=== PATIENT | male | born 1960 | race African-American/Black ===

== ENCOUNTER 2016-06-02 22:46 | Emergency (ER) | payer MEDICARE, MEDICAID ==
[~2016-06-02] VITALS: Ht 177.8 cm; Wt 61.4 kg
[2016-06-02 22:46] VITALS: BP 134/84; PULSE 93; RESP 20; O2SAT 98
--- NOTE | 2016-06-02 23:07 | ED.REPORT ---
HPI-Overdose/Alcohol Toxicity Date of Service Jun 02, 2016 ED Provider: MD Addison This is a 55 year old male with a history of HIV and schizophrenia presenting to the emergency department via EMS seeking alcohol detox. Pt reports every day EtOH intake, pt called emergency services today. He also took "two" muscle relaxers today that were prescribed at the time of prior fractures. History is limited, he states, "I get thoughts from the television...I was speaking vision. " Denies illicit drug abuse and suicidal ideation. Pt is compliant with HIV medications at this time. Nursing Notes Stated Complaint: ALCOHOL DETOX Chief Complaint: Substance Abuse Nursing Notes Reviewed: Yes (Me) Allergies: Coded Allergies: Penicillins (Verified Allergy, Mild, 06/02/16) Scheduled Citalopram (Citalopram) 20 Mg Tablet 20 MG PO DAILY Scheduled PRN Naproxen (Naproxen) 500 Mg Tab 500 MG PO BID PRN PRN For Pain General Time Seen by Provider: 23:08 Chief Complaint Intoxicated, alcohol Hx Obtained From: Patient Arrived By: Ambulance Severity: Current: No pain currently Pertinent Negative: Pt denies other symptoms Recent Healthcare: No recent doctor visit, No recent hospitalization Similar Sx Previous: No Risk-Overdose/Alcohol Tox )( Suicide Risk Stratification RF Statements: No risk factors Past Medical History Past Medical History Notes: Irritation list per [facility] notes: Triumeq 600-50-300 daily Citalopram 20 mg daily Lurasidone 40 mg daily ([facility] notes patient was on transition from olanzapine to lurasidone in Feb and is supposed to be on this dose now) Records from [facility] suggest reasonable compliance and monthly visits (note: records indicate last visit 04/14/16, was to be seen 04/2016 but no notes from [facility] sent, unclear if he missed that appointment) Naproxen 1 tablet twice a day Past Medical History Records obtained from [facility]: Stage III HIV well-controlled on ART (moisés 106, HIV diagnosed in December 1995, %CD4 count 33, Abs Count 304, CD$/CD8 320, HIV RNA undetectable on labs 03/04/16 at [facility]), on TRiumeq 600-50-300 daily Schizophrenia Arthritis Hyperlipidemia Past Surgical History Unclear Smoking History Current Every Day Smoker Social History Homeless Occasional tobacco and marijuana use "Occasional EtOH" per [facility] No prior or current IV drug use This a history of crack cocaine use Alcohol Use: >5 per day Drug Use: THC Ambulatory Status Independent Review of Systems Review of Systems Note: + EtOH consumption Unable to Obtain ROS Intoxicated (limited) Constitutional: Denies: Chills, Fever Cardiovascular: Denies: Chest pain GI: Denies: Abdominal pain, Nausea, Vomiting Physical Exam Initial Vital Signs Vital Signs (First) Date Time Temp Pulse Resp B/P Pulse Ox O2 Delivery O2 Flow Rate FiO2 06/02/16 22:46 36.8 93 20 134/84 98 Room Air Initial VS: Reviewed, Vital signs normal Head / Eyes: Atraumatic, Normocephalic, PERRL ENT: Mucous membranes moist, Conjunctiva normal, No scleral icterus Neck: Supple, Non-tender, Full range of motion Extremities: Vascular intact, Neuro intact, No swelling, No tenderness Skin: Warm, Dry, No cyanosis General/Constitutional: Awake Appearance / Presentation: Positive: Intoxicated Heavy intoxicated, difficult to understand, makes random statements Respiratory / Chest: Atraumatic, Breath sounds NL, Breath sounds = bilat, No respiratory distress, No rales, No rhonchi, No wheezing Cardiovascular: Heart rate NL, Regular rhythm, Heart sounds NL, Cap refill not delayed, Peripheral circulation NL Abdomen: Atraumatic, Soft, Non-tender, No guarding, No rebound Neurologic: No motor deficits, No sensory deficits, CN II - XII intact Psychiatric: Not suicidal, Not homicidal Interpretation & Diagnostics Lab Results Interpretation Result Diagram: 06/02/16 2331 06/02/16 2331 Test 06/02/16 23:30 06/02/16 23:31 06/02/16 23:40 Hold [place] Top Tube Received (Received) White Blood Count 4.5th/mm3 (3.8-10.1) Red Blood Count 4.16mil/mm3 (4.40-5.80) Hemoglobin 11.9g/dL (13.8-17.2) Hematocrit 35.9% (41.0-50.0) Mean Corpuscular Volume 86.3fL (81-100) Mean Corpuscular Hemoglobin 28.6pg (27.0-35.0) Mean Corpuscular Hemoglobin Concent 33.1% (32.0-37.0) Red Cell Distribution Width 14.3% (12.3-15.4) Platelet Count 165bil/L (150-400) Neutrophils (%) (Auto) 60.8% (40-74) Lymphocytes (%) (Auto) 20.5% (14-46) Monocytes (%) (Auto) 14.5% (4-12) Eosinophils (%) (Auto) 3.6% (0-5) Basophils (%) (Auto) 0.2% (0-3) Sodium Level 136mEq/L (134-144) Potassium Level 3.5mEq/L (3.5-5.2) Chloride Level 100mEq/L (97-108) Carbon Dioxide Level 20mmol/L (18-29) Blood Urea Nitrogen 12mg/dL (6-24) Creatinine 1.08mg/dL (0.76-1.27) Estimat Glomerular Filtration Rate 76mL/min (>59) Glucose Level 90mg/dL (60-99) Calcium Level 8.8mg/dL (8.5-10.1) Magnesium Level 2.3mg/dL (1.6-2.6) Total Bilirubin 0.3mg/dL (0.0-1.2) Aspartate Amino Transf (AST/SGOT) 84U/L (0-50) Alanine Aminotransferase (ALT/SGPT) 36U/L (0-44) Alkaline Phosphatase 71U/L (25-150) Total Protein 7.9g/dL (6.4-8.4) Albumin 3.7g/dL (3.4-5.0) Thyroid Stimulating Hormone (TSH) 0.411uIU/mL (0.450-4.500) Salicylates Level < 3.0ug/mL (30-250) Acetaminophen Level < 15.0ug/mL Rx (10-25) Alcohols 181mg/dL (0-10) Urine Color Straw (YELLOW) Urine Appearance Clear (CLEAR,HAZY) Urine pH 6.0 (5.0-8.0) Urine Specific Steger 1.002 (1.003-1.035) Urine Protein Negativemg/dL (NEG,TRACE) Urine Glucose (UA) Negativemg/dL (NEGATIVE) Urine Ketones Negativemg/dL (NEGATIVE) Urine Occult Blood Negative (NEGATIVE) Urine Nitrite Negative (NEGATIVE) Urine Bilirubin Negative (NEGATIVE) Urine Urobilinogen Normalmg/dL (NORMAL) Urine Leukocyte Esterase Negative (NEGATIVE) Urine RBC 0-2/hpf (0-2) Urine WBC 0-5/hpf (0-5) Urine Epithelial Cells Occasional/hpf (NONE-MOD) Urine Crystals None seen (NONE SEEN) Urine Bacteria None/hpf (NONE-FEW) Urine Hyaline Casts None/lpf (NONE) Urine Granular Casts None seen (NONE SEEN) Urine Waxy Casts None seen (NONE SEEN) Urine Red Blood Cell Casts None seen (NONE SEEN) Urine White Blood Cell Casts None seen (NONE SEEN) Urine Mucus None seen (None Seen) Urine Trichomonas None seen (NONE SEEN) Urine Yeast None (NONE SEEN) Urine Culture Reflexed Not indicated Lab Results Interpretation: CBC normal CMP normal EtOH elevated U tox positive for marijuana Tylenol negative Salicylates negative Re-Eval/Medical Decision Med Decision/Clinical Course This is a 55-year-old homeless male presents needing to EtOH. He also told the nurses that he took muscle relaxants as well. When interviewed him, he smells of EtOH, his speech is highly slurred to the point that I can only understand component to what he is saying. Some of what she says is concerning for component of psychosis as well as he made statements to the affected with salad like hearing voices and getting thoughts from the television, but the bottom line is I really could not understand enough due to some slurring of the speech and clinical intoxication. I could not get him to describe suicidality, and he told me he only took 2 tabs of the muscle relaxant , but again the whole interview was limited in reliability. Patient is intoxicated clinically. He has adequate respirations with no signs of respiratory depression or airway compromise. Smiling and attempting to make jokes, several which I cannot understand again due to the slurred speech. He has no visible signs of trauma, no focal deficits. I was able to get out from these been seen at [facility]-this he has no records here, and so records were requested from [facility]. Labs demonstrate a component of EtOH. Urine tox is negative except for THC, and blood work is normal otherwise except for marginally low TSH. The records from [facility] indicate a history of schizophrenia and the patient is supposed to be on Latuda 40mg. I cannot tell if the patient may have missed his April appointment. At this point there is signs of clinical intoxication such that the plan is outpatient to metabolize medications to include the alcohol and the possible muscle relaxants to then allow further reevaluation. The patient does have a history of HIV, but records from [facility] indicate the patient has been compliant with this regimen, he has had recent CD4 counts and undetectable HIV viral loads indicating he has had adequate therapy. Kritz from [facility] also suggest the patient does not have a sustained history of alcoholism. His labs in the ED are normal without evidence of acute medical abnormality. The patient will be turned over at change of shift pending sobriety and re-eval. Source of Hx: Old records Differential Diagnosis: Positive: Intoxication, alcohol, Schizophrenia Counseled Regarding: Diagnosis, Lab results, Need for follow-up, When/why to return to ED Discharge & Departure Impression: Primary Impression: Alcohol intoxication Complication of substance-induced condition: uncomplicated Qualified Code: F10.120 - Alcohol abuse with intoxication, uncomplicated Additional Impressions: Schizophrenia Schizophrenia type: unspecified Qualified Code: F20.9 - Schizophrenia, unspecified HIV (human immunodeficiency virus infection) Overdose Encounter type: initial encounter Injury intent: undetermined intent Qualified Code: T50.904A - Poisoning by unspecified drugs, medicaments and biological substances, undetermined, initial encounter Homeless Care Transferred to: Dr. Zamarripa at change of shift Care Transferred at: 03:00 Scribe Attestation Portions of this note were transcribed by Lit Chappell. I, Dr. Jaime personally performed the history, physical exam and medical decision-making; I reviewed and confirmed the accuracy of the information in the transcribed note. Signed by: elif Ellis. 06/02/2016, 03:00. Alban Jaime MD Jun 02, 2016 23:07 LIT CHAPPELL Jun 02, 2016 23:10
[2016-06-02] MEDS ORDERED: CITA20TA11 PO (23:35)
[2016-06-02] MEDS ORDERED: NPR500T PO (23:35)
[2016-06-02 23:39] VITALS: RESP 18; O2SAT 96
[2016-06-02 23:42] LABS: BASOPHILS % (AUTO) 0.2 % (0-3); EOSINOPHILS % (AUTO) 3.6 % (0-5); MONOCYTES % (AUTO) 14.5 % (4-12); Mean Corpuscular Hemoglobin 28.6 pg (27.0-35.0); Mean Corpuscular Volume 86.3 fL (81-100); NEUTROPHILS % (AUTO) 60.8 % (40-74); Platelet Count 165 bil/L (150-400)
[2016-06-03 00:10] LABS: APPEARANCE,URINE CLEAR (CLEAR,HAZY); COLOR,URINE STRAW (YELLOW); OCCULT BLOOD,URINE NEGATIVE (NEGATIVE); UROBILINOGEN,URINE NORMAL (NORMAL)
[2016-06-03 00:25] LABS: Magnesium 2.3 mg/dL (1.6-2.6)
[2016-06-03 03:27] VITALS: BP 140/86; PULSE 74; RESP 18; O2SAT 96
[2016-06-03 06:19] VITALS: BP 138/82; PULSE 78; RESP 20; O2SAT 97
[2016-06-03] MEDS ORDERED: OLAN5TAB PO (12:09)
[2016-06-03] MEDS ORDERED: LURA40TA3 PO (12:09)
[2016-06-03] MEDS ORDERED: ABAC1TAB14 PO (12:09)
[2016-06-03 14:51] VITALS: BP 157/97; PULSE 97; RESP 18; O2SAT 97
== END 2016-06-03 14:55 | disposition home or self-care (01) ==
LOC: SED 22:46 → EDBD 22:46 → SED 06-03 14:55
DX: F10.129 Alcohol abuse with intoxication, unspecified (principal); F20.9 Schizophrenia, unspecified; T48.1X4A Poisoning by skeletal muscle relaxants [neuromuscular blocking agents], undetermined, initial encounter; B20 Human immunodeficiency virus [HIV] disease; Z59.0 Homelessness; F17.200 Nicotine dependence, unspecified, uncomplicated; E78.5 Hyperlipidemia, unspecified; Z88.0 Allergy status to penicillin; Z79.899 Other long term (current) drug therapy
CPT/HCPCS: 36415; 80053; 81000; 81002; 82075; 83735; 84443; 85025; 99284; G0480